=== PATIENT | female | born 1950 ===

== ENCOUNTER 2025-08-16 11:59 | Inpatient (IN) | payer MEDICARE ==
[2025-08-16] MEDS ORDERED: cefTRIAXone (ROCEPHIN) 2 GM VIAL ONE (12:25)
[2025-08-16] MEDS ORDERED: Azithromycin 500 MG VIAL ONE (12:25)
[2025-08-16 12:27] LABS: #Basophils 0.04 10x3/uL (0.0-0.2); #Eosinophils Less than 0.03 10x3/uL (0.0-0.7); #Monocytes 1.14 10x3/uL (0.11-0.59); #Neutrophils 6.55 10x3/uL (1.40-6.50); %Basophils 0.4 % (0.0-1.0); %Eosinophils 0.2 % (0.0-10.0); %Lymphocytes 15.1 % (21.0-51.0); %Monocytes 12.1 % (0.0-10.0); %Neutrophils 69.5 % (42.0-75.0); Hematocrit 32.4 % (36.0-47.0); Hemoglobin 10.8 g/dL (12.0-16.0); Mean Corpuscular Hemoglobin 29.1 pg (27.0-31.0); Mean Corpuscular Volume 87.3 fL (78.0-98.0); Platelet Count 220 10x3/uL (130-400); Red Blood Cell (RBC) Count 3.71 mill/uL (4.20-5.40); White Blood Cell (WBC) Count 9.42 10x3/uL (4.8-10.8)
[2025-08-16 12:29] LABS: Actual Bicarbonate (HCO3v) 23.0 mEq/L (22-28); Analyzer IN Cardio ER; Base Excess -0.9 mEq/L (-2.0 to +3.0); Calcium, Ionized (venous) 1.03 mmol/L (1.16-1.32); Chloride (VBG) 98 mmol/L (98-106); Hematocrit-VBG 36 % (36.0-47.0); Hemoglobin (Hb) 12.2 g/dL (11.7-16.1); Potassium (VBG) 3.81 mmol/L (3.70-5.30); Sodium 136 mmol/L (133-146)
[2025-08-16 12:57] LABS: ALT (SGPT) 18 U/L (Less than 34); AST (SGOT) 70 U/L (11-34); Albumin 2.5 g/dL (3.1-4.5); Alkaline Phosphatase 111 U/L (40-110); Anion Gap 18 mmol/L (10-20); BUN (Urea Nitrogen) 20 mg/dL (9.8-20.1); Bilirubin, Total 1.2 mg/dL (0.3-1.2); Calc. Creatinine Clearance 0 mL/min (70-130); Calcium 8.1 mg/dL (7.8-10.44); Carbon Dioxide 22 mmol/L (23-31); Chloride 98 mmol/L (98-107); Globulin 3.2 g/dL (2.4-3.5); Glucose 116 mg/dL (83-110); Magnesium 1.9 mg/dL (1.6-2.6); Potassium 4.2 mmol/L (3.5-5.1); Sodium 134 mmol/L (136-145)
[2025-08-16] MEDS ORDERED: Ondansetron PF 4 MG/2 ML Vial ONE (12:59)
[2025-08-16] MEDS ORDERED: Furosemide 40 MG (4 mL) VIAL ONE (14:10)
[2025-08-16] MEDS ORDERED: Aspirin Chewable 81 MG TAB ONE (14:10)
[2025-08-16 14:20] LABS: Bacteria/HPF 2+ HPF (None Seen); CAUTI Indications for Culture Alt mental st,lethar; Glucose, Urine (Dipstick) Normal (Negative); Leukocyte 500 Leu/uL (Negative); Protein, Urine (Dipstick) Negative (Neg-Trace); RBC/HPF 0-3 HPF (0-3); Specific Gravity, Urine 1.013 (1.002-1.036); WBC/HPF Greater than 50 HPF (0-3)
[2025-08-16 14:22] LABS: Urine Culture Reflex Yes Yes
[2025-08-16] MEDS ORDERED: Enoxaparin 80 MG (0.8 mL) SYRINGE ONE (15:28)
[2025-08-16] MEDS ORDERED: Iopamidol-370 76% 500 ML MDV (1 ML CHARGE) ONE (15:32)
[2025-08-16] MEDS ORDERED: Ondansetron PF 4 MG/2 ML Vial IVP PRN (15:58)
[2025-08-16] MEDS ORDERED: Electrolyte Replacement Protocol 1 EACH FS SCH (16:00)
[2025-08-16] MEDS ORDERED: Magnesium 2 GM/50 ML BAG (IN WATER) ONE (20:09)
[2025-08-16] MEDS: Magnesium 2 GM/50 ML(in water) 2 GM in Premix 1 BAG IVPB SCH (20:14)
[2025-08-16] MEDS ORDERED: Lidocaine Viscous Sol 2% 15 ml UD Cup ONE (23:01)
[2025-08-17] MEDS: Furosemide 40 MG (4 mL) VIAL SLOW IVP SCH (04:18)
[2025-08-17 06:01] LABS: #Basophils 0.06 10x3/uL (0.0-0.2); #Eosinophils 0.22 10x3/uL (0.0-0.7); #Monocytes 0.94 10x3/uL (0.11-0.59); #Neutrophils 9.22 10x3/uL (1.40-6.50); %Basophils 0.5 % (0.0-1.0); %Eosinophils 1.8 % (0.0-10.0); %Lymphocytes 10.6 % (21.0-51.0); %Monocytes 7.9 % (0.0-10.0); %Neutrophils 77.5 % (42.0-75.0); Hematocrit 33.8 % (36.0-47.0); Hemoglobin 10.8 g/dL (12.0-16.0); Mean Corpuscular Hemoglobin 28.6 pg (27.0-31.0); Mean Corpuscular Volume 89.7 fL (78.0-98.0); Platelet Count 248 10x3/uL (130-400); Red Blood Cell (RBC) Count 3.77 mill/uL (4.20-5.40); White Blood Cell (WBC) Count 11.90 10x3/uL (4.8-10.8)
[2025-08-17 06:29] LABS: Anion Gap 15 mmol/L (10-20); BUN (Urea Nitrogen) 20 mg/dL (9.8-20.1); Calc. Creatinine Clearance 67 mL/min (70-130); Calcium 8.0 mg/dL (7.8-10.44); Carbon Dioxide 27 mmol/L (23-31); Chloride 98 mmol/L (98-107); Glucose 96 mg/dL (83-110); Potassium 3.3 mmol/L (3.5-5.1); Sodium 137 mmol/L (136-145)
[2025-08-17] MEDS: cefTRIAXone\\ROCEPHIN 1 GM in Sodium Chloride 0.9% 100 ML IVPB SCH (08:36)
[2025-08-17] MEDS: Enoxaparin 40 MG (0.4 mL) SYRINGE SC SCH (08:37)
[2025-08-17] MEDS: Pantoprazole 40 MG VIAL IVP SCH (08:38)
[2025-08-17] MEDS: Azithromycin 500 MG in Sodium Chloride 0.9% 250 ML 250 ML IVPB SCH (12:43)
[2025-08-17] MEDS: predniSONE 20 MG TAB PO SCH (15:41)
[2025-08-18 05:35] LABS: #Basophils Less than 0.03 10x3/uL (0.0-0.2); #Eosinophils Less than 0.03 10x3/uL (0.0-0.7); #Monocytes 0.49 10x3/uL (0.11-0.59); #Neutrophils 5.12 10x3/uL (1.40-6.50); %Basophils 0.3 % (0.0-1.0); %Eosinophils 0.0 % (0.0-10.0); %Lymphocytes 11.7 % (21.0-51.0); %Monocytes 7.4 % (0.0-10.0); %Neutrophils 77.7 % (42.0-75.0); Hematocrit 36.0 % (36.0-47.0); Hemoglobin 11.6 g/dL (12.0-16.0); Mean Corpuscular Hemoglobin 28.9 pg (27.0-31.0); Mean Corpuscular Volume 89.6 fL (78.0-98.0); Platelet Count 301 10x3/uL (130-400); Red Blood Cell (RBC) Count 4.02 mill/uL (4.20-5.40); White Blood Cell (WBC) Count 6.59 10x3/uL (4.8-10.8)
[2025-08-18 05:50] LABS: Anion Gap 14 mmol/L (10-20); BUN (Urea Nitrogen) 20 mg/dL (9.8-20.1); Calc. Creatinine Clearance 91 mL/min (70-130); Calcium 8.4 mg/dL (7.8-10.44); Carbon Dioxide 27 mmol/L (23-31); Chloride 97 mmol/L (98-107); Glucose 126 mg/dL (83-110); Potassium 3.9 mmol/L (3.5-5.1); Sodium 134 mmol/L (136-145)
[2025-08-18] MEDS: DULoxetine 30 MG CAP PO SCH (08:43)
[2025-08-18] MEDS: Folic Acid 1 MG TAB PO SCH (08:43)
[2025-08-18] MEDS: predniSONE 20 MG TAB PO SCH (08:47)
[2025-08-19] MEDS: Benzocaine/Menthol 1 LOZ LOZ PO PRN (02:56)
[2025-08-19 04:22] LABS: #Basophils 0.03 10x3/uL (0.0-0.2); #Eosinophils Less than 0.03 10x3/uL (0.0-0.7); #Monocytes 1.22 10x3/uL (0.11-0.59); #Neutrophils 7.05 10x3/uL (1.40-6.50); %Basophils 0.3 % (0.0-1.0); %Eosinophils 0.0 % (0.0-10.0); %Lymphocytes 13.9 % (21.0-51.0); %Monocytes 12.4 % (0.0-10.0); %Neutrophils 71.8 % (42.0-75.0); Hematocrit 33.5 % (36.0-47.0); Hemoglobin 10.8 g/dL (12.0-16.0); Mean Corpuscular Hemoglobin 28.5 pg (27.0-31.0); Mean Corpuscular Volume 88.4 fL (78.0-98.0); Platelet Count 352 10x3/uL (130-400); Red Blood Cell (RBC) Count 3.79 mill/uL (4.20-5.40); White Blood Cell (WBC) Count 9.83 10x3/uL (4.8-10.8)
[2025-08-19 04:57] LABS: Anion Gap 15 mmol/L (10-20); BUN (Urea Nitrogen) 30 mg/dL (9.8-20.1); Calc. Creatinine Clearance 75 mL/min (70-130); Calcium 8.5 mg/dL (7.8-10.44); Carbon Dioxide 28 mmol/L (23-31); Chloride 92 mmol/L (98-107); Glucose 126 mg/dL (83-110); Potassium 4.1 mmol/L (3.5-5.1); Sodium 131 mmol/L (136-145)
[2025-08-19] MEDS: Pantoprazole 40 MG DR.TAB PO SCH (08:12)
[2025-08-20 04:56] LABS: #Basophils 0.04 10x3/uL (0.0-0.2); #Eosinophils 0.04 10x3/uL (0.0-0.7); #Monocytes 1.29 10x3/uL (0.11-0.59); #Neutrophils 6.58 10x3/uL (1.40-6.50); %Basophils 0.4 % (0.0-1.0); %Eosinophils 0.4 % (0.0-10.0); %Lymphocytes 22.4 % (21.0-51.0); %Monocytes 12.4 % (0.0-10.0); %Neutrophils 63.1 % (42.0-75.0); Hematocrit 33.6 % (36.0-47.0); Hemoglobin 11.3 g/dL (12.0-16.0); Mean Corpuscular Hemoglobin 29.0 pg (27.0-31.0); Mean Corpuscular Volume 86.2 fL (78.0-98.0); Platelet Count 374 10x3/uL (130-400); Red Blood Cell (RBC) Count 3.90 mill/uL (4.20-5.40); White Blood Cell (WBC) Count 10.43 10x3/uL (4.8-10.8)
[2025-08-20 05:29] LABS: Anion Gap 16 mmol/L (10-20); BUN (Urea Nitrogen) 27 mg/dL (9.8-20.1); Calc. Creatinine Clearance 90 mL/min (70-130); Calcium 8.6 mg/dL (7.8-10.44); Carbon Dioxide 28 mmol/L (23-31); Chloride 90 mmol/L (98-107); Glucose 92 mg/dL (83-110); Potassium 3.4 mmol/L (3.5-5.1); Sodium 131 mmol/L (136-145)
[2025-08-20] MEDS: Acetaminophen 325 MG TAB PO PRN (20:28)
[2025-08-21 04:42] LABS: #Basophils 0.03 10x3/uL (0.0-0.2); #Eosinophils Less than 0.03 10x3/uL (0.0-0.7); #Monocytes 1.14 10x3/uL (0.11-0.59); #Neutrophils 5.55 10x3/uL (1.40-6.50); %Basophils 0.4 % (0.0-1.0); %Eosinophils 0.2 % (0.0-10.0); %Lymphocytes 17.5 % (21.0-51.0); %Monocytes 13.4 % (0.0-10.0); %Neutrophils 65.1 % (42.0-75.0); Hematocrit 34.4 % (36.0-47.0); Hemoglobin 11.0 g/dL (12.0-16.0); Mean Corpuscular Hemoglobin 28.3 pg (27.0-31.0); Mean Corpuscular Volume 88.4 fL (78.0-98.0); Platelet Count 402 10x3/uL (130-400); Red Blood Cell (RBC) Count 3.89 mill/uL (4.20-5.40); White Blood Cell (WBC) Count 8.52 10x3/uL (4.8-10.8)
[2025-08-21 04:59] LABS: Anion Gap 16 mmol/L (10-20); BUN (Urea Nitrogen) 22 mg/dL (9.8-20.1); Calc. Creatinine Clearance 95 mL/min (70-130); Calcium 8.6 mg/dL (7.8-10.44); Carbon Dioxide 32 mmol/L (23-31); Chloride 92 mmol/L (98-107); Glucose 102 mg/dL (83-110); Potassium 4.2 mmol/L (3.5-5.1); Sodium 136 mmol/L (136-145)
[2025-08-21] MEDS: diphenhydrAMINE 25 MG CAP PO SCH (21:54)
[2025-08-21] MEDS: Melatonin 3 MG TAB PO PRN (21:54)
[2025-08-22 04:38] LABS: Hematocrit 34.5 % (36.0-47.0); Hemoglobin 11.0 g/dL (12.0-16.0); Mean Corpuscular Hemoglobin 28.4 pg (27.0-31.0); Mean Corpuscular Volume 88.9 fL (78.0-98.0); Platelet Count 366 10x3/uL (130-400); Red Blood Cell (RBC) Count 3.88 mill/uL (4.20-5.40); White Blood Cell (WBC) Count 6.44 10x3/uL (4.8-10.8)
[2025-08-22 04:44] LABS: Anion Gap 16 mmol/L (10-20); BUN (Urea Nitrogen) 18 mg/dL (9.8-20.1); Calc. Creatinine Clearance 94 mL/min (70-130); Calcium 8.5 mg/dL (7.8-10.44); Carbon Dioxide 34 mmol/L (23-31); Chloride 92 mmol/L (98-107); Glucose 130 mg/dL (83-110); Potassium 4.7 mmol/L (3.5-5.1); Sodium 137 mmol/L (136-145)
[2025-08-22 05:11] LABS: Plasma Cells 1 % (0-0); Platelet Adequacy Comment Platelets Normal; Polychromasia SLIGHT = 2-3 cells HPF (0-2); Smudge Cells 7.9 %
[2025-08-22] MEDS: Furosemide 20 MG (2 mL) VIAL SLOW IVP SCH (08:49)
[2025-08-22] MEDS: Sulfameth/Trimethoprim DS 800-160mg TAB PO SCH (10:35)
[2025-08-23 03:24] LABS: Hematocrit 35.2 % (36.0-47.0); Hemoglobin 11.3 g/dL (12.0-16.0); Mean Corpuscular Hemoglobin 28.2 pg (27.0-31.0); Mean Corpuscular Volume 87.8 fL (78.0-98.0); Platelet Count 417 10x3/uL (130-400); Red Blood Cell (RBC) Count 4.01 mill/uL (4.20-5.40); White Blood Cell (WBC) Count 7.42 10x3/uL (4.8-10.8)
[2025-08-23 03:46] LABS: Anisocytosis SLIGHT = 6-15 cells HPF (0-5); Platelet Adequacy Comment Platelets Increased; Polychromasia SLIGHT = 2-3 cells HPF (0-2)
[2025-08-23 03:53] LABS: Anion Gap 14 mmol/L (10-20); BUN (Urea Nitrogen) 18 mg/dL (9.8-20.1); Calc. Creatinine Clearance 88 mL/min (70-130); Calcium 8.5 mg/dL (7.8-10.44); Carbon Dioxide 32 mmol/L (23-31); Chloride 94 mmol/L (98-107); Glucose 138 mg/dL (83-110); Potassium 4.0 mmol/L (3.5-5.1); Sodium 136 mmol/L (136-145)
[2025-08-24 03:03] LABS: #Basophils 0.04 10x3/uL (0.0-0.2); #Eosinophils Less than 0.03 10x3/uL (0.0-0.7); #Monocytes 1.46 10x3/uL (0.11-0.59); #Neutrophils 10.21 10x3/uL (1.40-6.50); %Basophils 0.3 % (0.0-1.0); %Eosinophils 0.0 % (0.0-10.0); %Lymphocytes 6.4 % (21.0-51.0); %Monocytes 11.2 % (0.0-10.0); %Neutrophils 78.3 % (42.0-75.0); Hematocrit 35.3 % (36.0-47.0); Hemoglobin 11.2 g/dL (12.0-16.0); Mean Corpuscular Hemoglobin 28.0 pg (27.0-31.0); Mean Corpuscular Volume 88.3 fL (78.0-98.0); Platelet Count 484 10x3/uL (130-400); Red Blood Cell (RBC) Count 4.00 mill/uL (4.20-5.40); White Blood Cell (WBC) Count 13.05 10x3/uL (4.8-10.8)
[2025-08-24 03:40] LABS: Anion Gap 16 mmol/L (10-20); BUN (Urea Nitrogen) 25 mg/dL (9.8-20.1); Calc. Creatinine Clearance 76 mL/min (70-130); Calcium 8.7 mg/dL (7.8-10.44); Carbon Dioxide 29 mmol/L (23-31); Chloride 97 mmol/L (98-107); Glucose 146 mg/dL (83-110); Potassium 4.9 mmol/L (3.5-5.1); Sodium 137 mmol/L (136-145)
[2025-08-25 03:28] LABS: #Basophils 0.04 10x3/uL (0.0-0.2); #Eosinophils Less than 0.03 10x3/uL (0.0-0.7); #Monocytes 0.99 10x3/uL (0.11-0.59); #Neutrophils 10.23 10x3/uL (1.40-6.50); %Basophils 0.3 % (0.0-1.0); %Eosinophils 0.1 % (0.0-10.0); %Lymphocytes 5.6 % (21.0-51.0); %Monocytes 8.0 % (0.0-10.0); %Neutrophils 82.5 % (42.0-75.0); Hematocrit 35.5 % (36.0-47.0); Hemoglobin 11.2 g/dL (12.0-16.0); Mean Corpuscular Hemoglobin 27.9 pg (27.0-31.0); Mean Corpuscular Volume 88.3 fL (78.0-98.0); Platelet Count 398 10x3/uL (130-400); Red Blood Cell (RBC) Count 4.02 mill/uL (4.20-5.40); White Blood Cell (WBC) Count 12.40 10x3/uL (4.8-10.8)
[2025-08-25 03:47] LABS: Anion Gap 16 mmol/L (10-20); BUN (Urea Nitrogen) 28 mg/dL (9.8-20.1); Calc. Creatinine Clearance 86 mL/min (70-130); Calcium 8.1 mg/dL (7.8-10.44); Carbon Dioxide 26 mmol/L (23-31); Chloride 94 mmol/L (98-107); Glucose 199 mg/dL (83-110); Potassium 4.5 mmol/L (3.5-5.1); Sodium 131 mmol/L (136-145)
[2025-08-25] MEDS ORDERED: Glucagon 1 MG/ML KIT IM PRN (08:52)
[2025-08-25 10:32] LABS: HIV (1/2) Antibody/Antigen NONREACTIVE (NonReactive); HIV 1/2 INDEX 0.06 S/CO (<1.00)
[2025-08-25] MEDS: Mupirocin 1 GM TUBE NASAL DECOLONIZATION NASAL SCH (21:52)
[2025-08-26] MEDS: Etomidate 40 MG (20 mL) VIAL IVP SCH (03:42)
[2025-08-26] MEDS: Rocuronium Bromide 10 MG/ML (10ML VIAL) IVP SCH (03:43)
[2025-08-26] MEDS ORDERED: Propofol BOLUS 1,000 MG/100 ML VIAL IV PRN (04:00)
[2025-08-26] MEDS ORDERED: Fentanyl BOLUS 100 ML IVPB PRN (04:00)
[2025-08-26] MEDS ORDERED: DISCONTINUE PREVIOUS NARCOTIC PAIN MEDICATIONS AND BENZODIAZEPINES FS SCH (04:00)
[2025-08-26 04:01] LABS: #Basophils 0.08 10x3/uL (0.0-0.2); #Eosinophils Less than 0.03 10x3/uL (0.0-0.7); #Monocytes 1.36 10x3/uL (0.11-0.59); #Neutrophils 13.65 10x3/uL (1.40-6.50); %Basophils 0.5 % (0.0-1.0); %Eosinophils 0.0 % (0.0-10.0); %Lymphocytes 3.7 % (21.0-51.0); %Monocytes 8.4 % (0.0-10.0); %Neutrophils 84.0 % (42.0-75.0); Hematocrit 35.2 % (36.0-47.0); Hemoglobin 11.2 g/dL (12.0-16.0); Mean Corpuscular Hemoglobin 27.8 pg (27.0-31.0); Mean Corpuscular Volume 87.3 fL (78.0-98.0); Platelet Count 499 10x3/uL (130-400); Red Blood Cell (RBC) Count 4.03 mill/uL (4.20-5.40); White Blood Cell (WBC) Count 16.24 10x3/uL (4.8-10.8)
[2025-08-26 04:01] LABS: Actual Bicarbonate (HCO3a) 24.1 mEq/L (22-28); Base Excess (BEa) -3.6 mEq/L (-2.0 to +3.0); CO2 Tension 54.7 mmHg (35.0-45.0); Calcium, Ionized (arterial) 1.10 mmol/L (1.12-1.30); Hematocrit-ABG 37 % (36.0-47.0); Hemoglobin (Hb) 12.5 g/dL (12.0-16.0); Potassium - ABG Lab 4.23 mmol/L (3.70-5.30); pH, Arterial 7.261 (7.35-7.45)
[2025-08-26 04:04] LABS: O2 Tension (PaO2), arterial 47.9 mmHg (> 70.0)
[2025-08-26 04:05] LABS: Puncture Site Right Radial artery
[2025-08-26 04:12] LABS: Anion Gap 21 mmol/L (10-20); BUN (Urea Nitrogen) 21 mg/dL (9.8-20.1); Calc. Creatinine Clearance 80 mL/min (70-130); Calcium 8.2 mg/dL (7.8-10.44); Carbon Dioxide 20 mmol/L (23-31); Chloride 95 mmol/L (98-107); Glucose 196 mg/dL (83-110); Potassium 4.6 mmol/L (3.5-5.1); Sodium 131 mmol/L (136-145)
[2025-08-26] MEDS: EPINEPHrine 1 MG/10 ML Abboject SYRINGE ONE (05:47)
[2025-08-26 08:31] LABS: Actual Bicarbonate (HCO3a) 25.4 mEq/L (22-28); Base Excess (BEa) -2.1 mEq/L (-2.0 to +3.0); CO2 Tension 55.7 mmHg (35.0-45.0); Calcium, Ionized (arterial) 1.14 mmol/L (1.12-1.30); Hematocrit-ABG 36 % (36.0-47.0); Hemoglobin (Hb) 12.3 g/dL (12.0-16.0); Potassium - ABG Lab 4.75 mmol/L (3.70-5.30); pH, Arterial 7.276 (7.35-7.45)
[2025-08-26 08:34] LABS: ALV-art Gradient 592.675 mmHg (0-20); O2 Tension (PaO2), arterial 50.7 mmHg (> 70.0); Puncture Site Right Radial artery
[2025-08-26] MEDS: Ventilator Sedation Protocol 1 EACH FS ONE (08:55)
[2025-08-26] MEDS: NOREPINEPHRINE 8 MG/250 ML-D5W 0 ML ONE (08:55)
[2025-08-26 16:14] LABS: RBC Count-Automated (BF) 19 /cu.mm; WBC/Nucleated-Auto (BF) 0 /cu.mm
[2025-08-27 04:40] LABS: #Basophils 0.03 10x3/uL (0.0-0.2); #Eosinophils Less than 0.03 10x3/uL (0.0-0.7); #Monocytes 1.28 10x3/uL (0.11-0.59); #Neutrophils 11.95 10x3/uL (1.40-6.50); %Basophils 0.2 % (0.0-1.0); %Eosinophils 0.0 % (0.0-10.0); %Lymphocytes 6.5 % (21.0-51.0); %Monocytes 8.8 % (0.0-10.0); %Neutrophils 81.8 % (42.0-75.0); Hematocrit 28.8 % (36.0-47.0); Hemoglobin 9.2 g/dL (12.0-16.0); Mean Corpuscular Hemoglobin 28.1 pg (27.0-31.0); Mean Corpuscular Volume 88.1 fL (78.0-98.0); Platelet Count 341 10x3/uL (130-400); Red Blood Cell (RBC) Count 3.27 mill/uL (4.20-5.40); White Blood Cell (WBC) Count 14.61 10x3/uL (4.8-10.8)
[2025-08-27 04:53] LABS: Anion Gap 16 mmol/L (10-20); BUN (Urea Nitrogen) 19 mg/dL (9.8-20.1); Calc. Creatinine Clearance 68 mL/min (70-130); Calcium 7.5 mg/dL (7.8-10.44); Carbon Dioxide 22 mmol/L (23-31); Chloride 92 mmol/L (98-107); Glucose 148 mg/dL (83-110); Potassium 4.9 mmol/L (3.5-5.1); Sodium 125 mmol/L (136-145)
[2025-08-27] MEDS: Pantoprazole 40 MG VIAL IVP SCH (09:22)
[2025-08-27] MEDS: Dextrose 50% Abboject 50 ML SYRINGE SLOW IVP PRN (11:16)
[2025-08-27 14:26] LABS: Anion Gap 15 mmol/L (10-20); BUN (Urea Nitrogen) 18 mg/dL (9.8-20.1); Calc. Creatinine Clearance 65 mL/min (70-130); Calcium 7.7 mg/dL (7.8-10.44); Carbon Dioxide 23 mmol/L (23-31); Chloride 91 mmol/L (98-107); Glucose 186 mg/dL (83-110); Potassium 4.9 mmol/L (3.5-5.1); Sodium 124 mmol/L (136-145)
[2025-08-27 14:39] LABS: Osmolality, Serum 268 mOsm/kg (280-301)
[2025-08-27 15:50] LABS: Osmolality, Urine 158 mOsm/kg (50-1200)
[2025-08-27 16:11] LABS: Actual Bicarbonate (HCO3a) 25.1 mEq/L (22-28); Base Excess (BEa) -3.2 mEq/L (-2.0 to +3.0); Calcium, Ionized (arterial) 1.14 mmol/L (1.12-1.30); Hematocrit-ABG 34 % (36.0-47.0); Hemoglobin (Hb) 11.4 g/dL (12.0-16.0); O2 Tension (PaO2), arterial 81.8 mmHg (> 70.0); Potassium - ABG Lab 4.81 mmol/L (3.70-5.30); pH, Arterial 7.228 (7.35-7.45)
[2025-08-27 16:17] LABS: ALV-art Gradient 269.125 mmHg (0-20); CO2 Tension 61.5 mmHg (35.0-45.0); Puncture Site Right Radial artery
[2025-08-28 03:51] LABS: #Basophils 0.03 10x3/uL (0.0-0.2); #Eosinophils Less than 0.03 10x3/uL (0.0-0.7); #Monocytes 1.37 10x3/uL (0.11-0.59); #Neutrophils 12.33 10x3/uL (1.40-6.50); %Basophils 0.2 % (0.0-1.0); %Eosinophils 0.1 % (0.0-10.0); %Lymphocytes 5.0 % (21.0-51.0); %Monocytes 9.2 % (0.0-10.0); %Neutrophils 82.4 % (42.0-75.0); Hematocrit 31.4 % (36.0-47.0); Hemoglobin 9.9 g/dL (12.0-16.0); Mean Corpuscular Hemoglobin 27.9 pg (27.0-31.0); Mean Corpuscular Volume 88.5 fL (78.0-98.0); Platelet Count 409 10x3/uL (130-400); Red Blood Cell (RBC) Count 3.55 mill/uL (4.20-5.40); White Blood Cell (WBC) Count 14.94 10x3/uL (4.8-10.8)
[2025-08-28 03:59] LABS: Anion Gap 14 mmol/L (10-20); BUN (Urea Nitrogen) 19 mg/dL (9.8-20.1); Calc. Creatinine Clearance 61 mL/min (70-130); Calcium 8.1 mg/dL (7.8-10.44); Carbon Dioxide 24 mmol/L (23-31); Chloride 89 mmol/L (98-107); Glucose 125 mg/dL (83-110); Potassium 5.4 mmol/L (3.5-5.1); Sodium 122 mmol/L (136-145)
[2025-08-28 06:41] LABS: Actual Bicarbonate (HCO3a) 27.7 mEq/L (22-28); Base Excess (BEa) 0.5 mEq/L (-2.0 to +3.0); CO2 Tension 56.8 mmHg (35.0-45.0); Calcium, Ionized (arterial) 1.13 mmol/L (1.12-1.30); Hematocrit-ABG 34 % (36.0-47.0); Hemoglobin (Hb) 11.4 g/dL (12.0-16.0); O2 Tension (PaO2), arterial 68.4 mmHg (> 70.0); Potassium - ABG Lab 5.66 mmol/L (3.70-5.30); pH, Arterial 7.306 (7.35-7.45)
[2025-08-28 06:43] LABS: Puncture Site Left Radial artery
[2025-08-28 06:44] LABS: ALV-art Gradient 359.700 mmHg (0-20)
[2025-08-28 10:17] LABS: Anion Gap 12 mmol/L (10-20); BUN (Urea Nitrogen) 23 mg/dL (9.8-20.1); Calc. Creatinine Clearance 53 mL/min (70-130); Calcium 8.0 mg/dL (7.8-10.44); Carbon Dioxide 25 mmol/L (23-31); Chloride 90 mmol/L (98-107); Glucose 135 mg/dL (83-110); Potassium 5.7 mmol/L (3.5-5.1); Sodium 121 mmol/L (136-145)
[2025-08-28] MEDS: LOKELMA 10 GM PACKET PO SCH ×2 (10:54→17:38)
[2025-08-28] MEDS ORDERED: Sulfameth/Trimethoprim DS 800-160mg TAB PO SCH (12:00)
[2025-08-28 17:12] LABS: Anion Gap 14 mmol/L (10-20); BUN (Urea Nitrogen) 26 mg/dL (9.8-20.1); Calc. Creatinine Clearance 48 mL/min (70-130); Calcium 8.1 mg/dL (7.8-10.44); Carbon Dioxide 26 mmol/L (23-31); Chloride 90 mmol/L (98-107); Glucose 119 mg/dL (83-110); Potassium 6.0 mmol/L (3.5-5.1); Sodium 124 mmol/L (136-145)
[2025-08-28] MEDS ORDERED: Dextrose 50% Abboject 50 ML SYRINGE SLOW IVP SCH (19:15)
[2025-08-28] MEDS: Heparin 5,000 UNITS/ML VIAL SC SCH (20:05)
[2025-08-28 20:17] LABS: Anion Gap 11 mmol/L (10-20); BUN (Urea Nitrogen) 29 mg/dL (9.8-20.1); Calc. Creatinine Clearance 49 mL/min (70-130); Calcium 8.1 mg/dL (7.8-10.44); Carbon Dioxide 27 mmol/L (23-31); Chloride 90 mmol/L (98-107); Glucose 125 mg/dL (83-110); Potassium 5.7 mmol/L (3.5-5.1); Sodium 122 mmol/L (136-145)
[2025-08-29 04:34] LABS: #Basophils Less than 0.03 10x3/uL (0.0-0.2); #Eosinophils Less than 0.03 10x3/uL (0.0-0.7); #Monocytes 1.09 10x3/uL (0.11-0.59); #Neutrophils 10.52 10x3/uL (1.40-6.50); %Basophils 0.1 % (0.0-1.0); %Eosinophils 0.0 % (0.0-10.0); %Lymphocytes 6.9 % (21.0-51.0); %Monocytes 8.5 % (0.0-10.0); %Neutrophils 82.2 % (42.0-75.0); Hematocrit 29.3 % (36.0-47.0); Hemoglobin 9.3 g/dL (12.0-16.0); Mean Corpuscular Hemoglobin 28.1 pg (27.0-31.0); Mean Corpuscular Volume 88.5 fL (78.0-98.0); Platelet Count 333 10x3/uL (130-400); Red Blood Cell (RBC) Count 3.31 mill/uL (4.20-5.40); White Blood Cell (WBC) Count 12.79 10x3/uL (4.8-10.8)
[2025-08-29 05:25] LABS: Anion Gap 14 mmol/L (10-20); BUN (Urea Nitrogen) 35 mg/dL (9.8-20.1); Calc. Creatinine Clearance 58 mL/min (70-130); Calcium 7.9 mg/dL (7.8-10.44); Carbon Dioxide 25 mmol/L (23-31); Chloride 90 mmol/L (98-107); Glucose 120 mg/dL (83-110); Potassium 5.5 mmol/L (3.5-5.1); Sodium 123 mmol/L (136-145)
[2025-08-29] MEDS ORDERED: Levothyroxine 100 MCG SDV IVP SCH (06:00)
[2025-08-29] MEDS: LOKELMA 10 GM PACKET PO SCH ×2 (07:55→15:49)
[2025-08-29] MEDS ORDERED: Sulfameth/Trimethoprim DS 800-160mg TAB PO SCH (09:00)
[2025-08-29 11:27] LABS: Actual Bicarbonate (HCO3a) 28.2 mEq/L (22-28); Base Excess (BEa) 1.0 mEq/L (-2.0 to +3.0); CO2 Tension 58.5 mmHg (35.0-45.0); Calcium, Ionized (arterial) 1.14 mmol/L (1.12-1.30); Hematocrit-ABG 31 % (36.0-47.0); Hemoglobin (Hb) 10.7 g/dL (12.0-16.0); O2 Tension (PaO2), arterial 67.4 mmHg (> 70.0); Potassium - ABG Lab 5.35 mmol/L (3.70-5.30); pH, Arterial 7.301 (7.35-7.45)
[2025-08-29 11:29] LABS: Puncture Site Right Radial artery
[2025-08-29 11:30] LABS: ALV-art Gradient 394.225 mmHg (0-20)
[2025-08-29] MEDS: Senokot S 8.6-50 MG TAB PER TUBE SCH ×2 (11:54→20:01)
[2025-08-29 12:52] VITALS: BMI 29.3
[2025-08-29 14:52] LABS: Anion Gap 15 mmol/L (10-20); BUN (Urea Nitrogen) 37 mg/dL (9.8-20.1); Calc. Creatinine Clearance 62 mL/min (70-130); Calcium 8.2 mg/dL (7.8-10.44); Carbon Dioxide 27 mmol/L (23-31); Chloride 91 mmol/L (98-107); Glucose 123 mg/dL (83-110); Potassium 5.6 mmol/L (3.5-5.1); Sodium 127 mmol/L (136-145)
[2025-08-29 15:11] VITALS: BP 140/61
[2025-08-29 18:46] LABS: Anion Gap 13 mmol/L (10-20); BUN (Urea Nitrogen) 37 mg/dL (9.8-20.1); Calc. Creatinine Clearance 62 mL/min (70-130); Calcium 8.2 mg/dL (7.8-10.44); Carbon Dioxide 29 mmol/L (23-31); Chloride 92 mmol/L (98-107); Glucose 121 mg/dL (83-110); Potassium 5.5 mmol/L (3.5-5.1); Sodium 128 mmol/L (136-145)
[2025-08-29] MEDS: LOKELMA 10 GM PACKET PER TUBE SCH (20:01)
[2025-08-30 04:23] LABS: #Basophils 0.03 10x3/uL (0.0-0.2); #Eosinophils Less than 0.03 10x3/uL (0.0-0.7); #Monocytes 1.39 10x3/uL (0.11-0.59); #Neutrophils 12.22 10x3/uL (1.40-6.50); %Basophils 0.2 % (0.0-1.0); %Eosinophils 0.0 % (0.0-10.0); %Lymphocytes 4.8 % (21.0-51.0); %Monocytes 9.4 % (0.0-10.0); %Neutrophils 83.0 % (42.0-75.0); Hematocrit 32.8 % (36.0-47.0); Hemoglobin 10.2 g/dL (12.0-16.0); Mean Corpuscular Hemoglobin 28.1 pg (27.0-31.0); Mean Corpuscular Volume 90.4 fL (78.0-98.0); Platelet Count 368 10x3/uL (130-400); Red Blood Cell (RBC) Count 3.63 mill/uL (4.20-5.40); White Blood Cell (WBC) Count 14.73 10x3/uL (4.8-10.8)
[2025-08-30 05:57] VITALS: BMI 29.9
[2025-08-30 08:22] LABS: Anion Gap 15 mmol/L (10-20); BUN (Urea Nitrogen) 38 mg/dL (9.8-20.1); Calc. Creatinine Clearance 72 mL/min (70-130); Calcium 8.4 mg/dL (7.8-10.44); Carbon Dioxide 25 mmol/L (23-31); Chloride 94 mmol/L (98-107); Glucose 123 mg/dL (83-110); Potassium 5.3 mmol/L (3.5-5.1); Sodium 129 mmol/L (136-145)
[2025-08-30] MEDS: Furosemide 40 MG (4 mL) VIAL IVP SCH (12:00)
[2025-08-30] MEDS: Furosemide 40 MG (4 mL) VIAL ONE (12:10)
[2025-08-30] MEDS: LOKELMA 10 GM PACKET PO SCH (13:30)
[2025-08-30 16:13] LABS: Anion Gap 12 mmol/L (10-20); BUN (Urea Nitrogen) 43 mg/dL (9.8-20.1); Calc. Creatinine Clearance 49 mL/min (70-130); Calcium 8.3 mg/dL (7.8-10.44); Carbon Dioxide 29 mmol/L (23-31); Chloride 94 mmol/L (98-107); Glucose 260 mg/dL (83-110); Potassium 5.5 mmol/L (3.5-5.1); Sodium 129 mmol/L (136-145)
[2025-08-30] MEDS ORDERED: Norepinephrine 8 MG/0.9% NS 250 ML IVPB SCH (18:15)
[2025-08-31 05:08] LABS: #Basophils 0.08 10x3/uL (0.0-0.2); #Eosinophils Less than 0.03 10x3/uL (0.0-0.7); #Monocytes 2.34 10x3/uL (0.11-0.59); #Neutrophils 17.62 10x3/uL (1.40-6.50); %Basophils 0.4 % (0.0-1.0); %Eosinophils 0.0 % (0.0-10.0); %Lymphocytes 2.9 % (21.0-51.0); %Monocytes 10.9 % (0.0-10.0); %Neutrophils 81.6 % (42.0-75.0); Hematocrit 30.4 % (36.0-47.0); Hemoglobin 9.2 g/dL (12.0-16.0); Mean Corpuscular Hemoglobin 28.0 pg (27.0-31.0); Mean Corpuscular Volume 92.4 fL (78.0-98.0); Platelet Count 239 10x3/uL (130-400); Red Blood Cell (RBC) Count 3.29 mill/uL (4.20-5.40); White Blood Cell (WBC) Count 21.56 10x3/uL (4.8-10.8)
[2025-08-31 05:11] VITALS: TEMP 97.3
[2025-08-31 05:36] LABS: Anion Gap 14 mmol/L (10-20); BUN (Urea Nitrogen) 62 mg/dL (9.8-20.1); Calc. Creatinine Clearance 38 mL/min (70-130); Calcium 7.8 mg/dL (7.8-10.44); Carbon Dioxide 26 mmol/L (23-31); Chloride 97 mmol/L (98-107); Glucose 128 mg/dL (83-110); Potassium 5.3 mmol/L (3.5-5.1); Sodium 132 mmol/L (136-145)
== END 2025-08-31 08:57 | disposition hospice, inpatient (51) | DRG 870 ==
LOC: ERS 11:59 → ERHOLD 15:29 → IMCU/EMU 21:03 → CCU 08-26 03:39
PROVIDERS: ADMIT Internal Medicine; ATTEND Hospitalist
PROC: 5A09357 Assistance with Respiratory Ventilation, Less than 24 Consecutive Hours, Continuous Positive Airway Pressure (ICD-10-PCS; 2025-08-16)
PROC: 5A0945A Assistance with Respiratory Ventilation, 24-96 Consecutive Hours, High Flow/Velocity Cannula (ICD-10-PCS; 2025-08-19)
PROC: 3E03329 Introduction of Other Anti-infective into Peripheral Vein, Percutaneous Approach (ICD-10-PCS; 2025-08-19)
PROC: 5A0935A Assistance with Respiratory Ventilation, Less than 24 Consecutive Hours, High Flow/Velocity Cannula (ICD-10-PCS; 2025-08-22)
PROC: 05HN33Z Insertion of Infusion Device into Left Internal Jugular Vein, Percutaneous Approach (ICD-10-PCS; principal; 2025-08-26)
PROC: B5141ZA Fluoroscopy of Left Jugular Veins using Low Osmolar Contrast, Guidance (ICD-10-PCS; 2025-08-26)
PROC: 0B9D8ZX Drainage of Right Middle Lung Lobe, Via Natural or Artificial Opening Endoscopic, Diagnostic (ICD-10-PCS; 2025-08-26)
PROC: 5A1955Z Respiratory Ventilation, Greater than 96 Consecutive Hours (ICD-10-PCS; 2025-08-26)
PROC: 0BH17EZ Insertion of Endotracheal Airway into Trachea, Via Natural or Artificial Opening (ICD-10-PCS; 2025-08-26)
PROC: 4A133R1 Monitoring of Arterial Saturation, Peripheral, Percutaneous Approach (ICD-10-PCS; 2025-08-26)
PROC: 3E04329 Introduction of Other Anti-infective into Central Vein, Percutaneous Approach (ICD-10-PCS; 2025-08-26)
PROC: 0T9B70Z Drainage of Bladder with Drainage Device, Via Natural or Artificial Opening (ICD-10-PCS; 2025-08-26)
PROC: 0DH67UZ Insertion of Feeding Device into Stomach, Via Natural or Artificial Opening (ICD-10-PCS; 2025-08-27)
PROC: 3E0G76Z Introduction of Nutritional Substance into Upper GI, Via Natural or Artificial Opening (ICD-10-PCS; 2025-08-27)
DX: A41.51 Sepsis due to Escherichia coli [E. coli] (principal); G93.41 Metabolic encephalopathy; I21.A1 Myocardial infarction type 2; I50.33 Acute on chronic diastolic (congestive) heart failure; J18.9 Pneumonia, unspecified organism; J96.01 Acute respiratory failure with hypoxia; N39.0 Urinary tract infection, site not specified; D84.9 Immunodeficiency, unspecified; E87.1 Hypo-osmolality and hyponatremia; I13.0 Hypertensive heart and chronic kidney disease with heart failure and stage 1 through stage 4 chronic kidney disease, or unspecified chronic kidney disease; N17.9 Acute kidney failure, unspecified; Z66 Do not resuscitate; Z51.5 Encounter for palliative care; E87.5 Hyperkalemia; R65.20 Severe sepsis without septic shock; L40.59 Other psoriatic arthropathy; E16.2 Hypoglycemia, unspecified; D63.1 Anemia in chronic kidney disease; N18.2 Chronic kidney disease, stage 2 (mild); E78.5 Hyperlipidemia, unspecified; R73.9 Hyperglycemia, unspecified; E03.9 Hypothyroidism, unspecified; F10.10 Alcohol abuse, uncomplicated; Z96.653 Presence of artificial knee joint, bilateral; Z98.890 Other specified postprocedural states; Z79.899 Other long term (current) drug therapy; Z79.890 Hormone replacement therapy
CPT/HCPCS: 36415; 36416; 36600; 51701; 70450; 71045; 71275; 76770; 80048; 80053; 81001; 82040; 82306; 82805; 83605; 83615; 83735; 83880; 83930; 83935; 84443; 84484; 85025; 85379; 87040; 87070; 87077; 87086; 87116; 87186; 87205; 87206; 87389; 87428; 87449; 87633; 88112; 88305; 88312; 89051; 93005; 93306; 93798; 94002; 94003; 96365; 96372; 96375; 97139; J0456; J0696; J1644; J1650; J1815; J1940; J2060; J2185; J2250; J2270; J2470; J2704; J2919; J3475; J3490; J7030; J7050; J7070; J7512; J7999; Q9967

== ENCOUNTER 2025-08-31 09:29 | Inpatient (IN) | payer OTHER ==
[2025-08-31] MEDS ORDERED: Glycopyrrolate 0.4 MG/ 2 ML VIAL SLOW IVP PRN (09:51)
[2025-08-31] MEDS ORDERED: Acetaminophen 325 MG TAB PO PRN (09:52)
[2025-08-31] MEDS ORDERED: Bisacodyl 10 MG SUPP PR PRN (09:54)
[2025-08-31] MEDS ORDERED: Hyoscyamine SL 0.125 MG TAB SL PRN (09:56)
[2025-08-31] MEDS ORDERED: Ondansetron PF 4 MG/2 ML Vial IVP PRN (09:57)
[2025-08-31] MEDS: Glycopyrrolate 0.4 MG/ 2 ML VIAL SLOW IVP SCH (10:06)
== END 2025-08-31 12:00 | disposition expired | DRG 951 ==
LOC: CCU 09:29
PROVIDERS: ADMIT Internal Medicine Nephrology; ATTEND Internal Medicine Nephrology
DX: Z51.5 Encounter for palliative care (principal); J96.21 Acute and chronic respiratory failure with hypoxia; I11.0 Hypertensive heart disease with heart failure; I50.9 Heart failure, unspecified; Z87.01 Personal history of pneumonia (recurrent)
CPT/HCPCS: J1630; J2060